=== PATIENT | female | born 1970 | race Caucasian/White ===

== ENCOUNTER 2024-01-29 11:49 | Outpatient (OUT) | payer MEDICAID, SELFPAY ==
--- NOTE | 2024-01-29 11:59 | XR_ITS ---
The [address] [address] Patient Name: ANAYELI BACH MRN: [id number] date: 1970 Sex: F Assigned Patient Location: [facility] Current Patient Location: Accession/Order Number: [id number] Exam Date: 01/29/2024 12:00 Report Date: 01/30/2024 07:11 At the request of: LOI PEARSON Procedure: XR lumbar spine 2-3V EXAMINATION: XR lumbar spine 2-3V HISTORY: Degenerative lumbar spinal stenosis M48.061 ; chronic lumbar pain radiating into legs, (right COMPARISON: No relevant comparison available. FINDINGS: BONES: No significant spondylosis, scoliosis, fracture, or visible bony lesion. DISC SPACES: Slight narrowing L4-5, L5-S1. PARASPINOUS: Large stool ball within rectal vault. OTHER: Negative. XR/XR lumbar spine 2-3V IMPRESSION: 1. Mild degenerative disc disease of lower lumbar spine. 2. Large stool ball within rectal vault; constipation? Fecal impaction? Electronically authenticated by: BRITTANI CORBIN Date: 01/30/2024 07:11
== END 2024-01-29 11:50 | disposition home or self-care (01) ==
LOC: RAD 11:55
PROVIDERS: PCP Family Medicine; Visit Provider Family Medicine
DX: M48.061 Spinal stenosis, lumbar region without neurogenic claudication (principal); M51.36 Other intervertebral disc degeneration, lumbar region
CPT/HCPCS: 72100